=== PATIENT | female | born 1935 | race Caucasian/White ===

== ENCOUNTER 2019-06-16 11:41 | Inpatient (IN) | payer MEDICARE, MEDICAID ==
[~2019-06-16] VITALS: Ht 165.1 cm; Wt 72.6 kg
[2019-06-16] MEDS ORDERED: SODIUM CHLORIDE 0.9% 1,000 ML IV ONE ×2 (12:07)
[2019-06-16 12:27] LABS: BASOPHILS % 0.4 % (0.0-2.0); EOSINOPHILS % 1.6 % (0.0-5.0); HEMATOCRIT. 34.7 % (36.0-48.0); HEMOGLOBIN. 11.9 g/dL (12.0-16.0); LYMPHOCYTES % 33.3 % (20.0-50.0); MEAN CORPUSCULAR VOLUME 87.8 fL (81.0-99.0); MEAN PLATELET VOLUME 8.6 fl (7.4-10.4); MONOCYTES % 5.8 % (2.0-8.0); NEUTROPHILS % 58.9 % (40.0-76.0); PLATELET 192 x1000/uL (130-400); RED BLOOD CELL COUNT 3.95 mill/uL (4.2-5.4); RED CELL DISTRIBUTION WIDTH 12.3 % (11.6-14.6)
[2019-06-16 12:32] LABS: CHLORIDE 101 mEq/L (98-107)
[2019-06-16 12:49] LABS: D-DIMER 1.66 mg/L FEU (<0.50); PROTHROMBIN TIME 10.7 sec (9.6-11.0)
[2019-06-16] MEDS ORDERED: PIPERACILLIN/TAZ 3.375G PREMIX 50 ML IV ONE (13:00)
[2019-06-16] MEDS ORDERED: VANCOMYCIN 1 G PREMIX 200 ML IV ONE (13:00)
[2019-06-16] MEDS ORDERED: SODIUM CHLORIDE 0.9% 1000ML BAG (SEPSIS BOLUS) IV ONE (13:00)
[2019-06-16] MEDS ORDERED: GUAIFENESIN 200MG/10ML SUGAR FREE UDC PO PRN (14:45)
[2019-06-16] MEDS ORDERED: ONDANSETRON HCL 4MG/2ML INJ IV PRN (14:45)
[2019-06-16] MEDS ORDERED: PIPERACILLIN/TAZ 3.375G PREMIX 50 ML IV SCH (14:45)
[2019-06-16] MEDS ORDERED: IOHEXOL-350 100 ML BOTTLE ONE ×2 (15:00→20:08)
[2019-06-16 15:24] LABS: CLARITY URINE CLEAR (CLEAR); COLOR URINE YELLOW (YELLOW); KETONES URINE NEGATIVE (NEGATIVE); LEUKOCYTE ESTERASE URINE NEGATIVE (NEGATIVE); NITRITE URINE NEGATIVE (NEGATIVE); OCCULT BLOOD URINE NEGATIVE (NEGATIVE); PH URINE 5.5 (4.5-8.0); PROTEIN URINE NEGATIVE (NEGATIVE); SPECIFIC GRAVITY URINE 1.004 (1.005-1.030); UROBILINOGEN URINE 0.2 E.U./dL (0.2-1.0)
[2019-06-16] MEDS: SODIUM CHLORIDE 0.9% 1,000 ML IV SCH (17:46)
[2019-06-16] MEDS: BLOOD SUGAR DIAGNOSTIC STRIP TEST SCH (18:00)
[2019-06-16] MEDS: ENOXAPARIN 40MG/0.4ML SYR SUBCUT SCH (18:32)
[2019-06-16 21:00] VITALS: BP 156/59
[2019-06-16] MEDS ORDERED: DEXTROSE 50% WATER 50ML SYRINGE IV PRN (21:00)
[2019-06-16 21:36] VITALS: BP 156/59
[2019-06-16] MEDS: ATORVASTATIN CALCIUM 40MG TABLET PO SCH (22:48)
[2019-06-16] MEDS: PIPERACILLIN/TAZOBACTAM 3.375 G in DEXT 5% WATER 100 ML IV SCH (22:48)
[2019-06-16] MEDS: INSULIN GLARGINE UD 100 UNITS/ML SYR SUBCUT SCH (22:54)
[2019-06-17] VITALS: BP 155/56
[2019-06-17] MEDS: BLOOD SUGAR DIAGNOSTIC STRIP TEST SCH ×4 (00:58→17:16)
[2019-06-17 04:00] VITALS: BP 151/44
[2019-06-17] MEDS: INSULIN LISPRO (HIGH DOSE) 100 UNITS/ML SUBCUT SCH ×4 (06:00→17:15)
[2019-06-17] MEDS: PIPERACILLIN/TAZOBACTAM 3.375 G in DEXT 5% WATER 100 ML IV SCH ×2 (06:21→13:00)
[2019-06-17] MEDS: SODIUM CHLORIDE 0.9% 1,000 ML IV SCH (06:22)
[2019-06-17 06:38] LABS: BASOPHILS % 0.7 % (0.0-2.0); EOSINOPHILS % 3.8 % (0.0-5.0); HEMOGLOBIN. 11.9 g/dL (12.0-16.0); LYMPHOCYTES % 27.2 % (20.0-50.0); MEAN CORPUSCULAR HEMOGLOBIN 29.7 pg (28.0-32.0); MEAN CORPUSCULAR VOLUME 87.7 fL (81.0-99.0); MEAN PLATELET VOLUME 8.7 fl (7.4-10.4); MONOCYTES % 6.4 % (2.0-8.0); NEUTROPHILS % 61.9 % (40.0-76.0); PLATELET 198 x1000/uL (130-400); RED BLOOD CELL COUNT 3.99 mill/uL (4.2-5.4); RED CELL DISTRIBUTION WIDTH 12.6 % (11.6-14.6)
[2019-06-17 06:42] LABS: CHLORIDE 110 mEq/L (98-107)
[2019-06-17 08:00] VITALS: BP 167/65
[2019-06-17] MEDS ORDERED: ENOXAPARIN 40MG/0.4ML SYR SUBCUT SCH (09:00)
[2019-06-17] MEDS: ASPIRIN 325MG EC TABLET PO SCH (09:53)
[2019-06-17] MEDS: INSULIN GLARGINE UD 100 UNITS/ML SYR SUBCUT SCH ×2 (09:54→21:39)
[2019-06-17 12:00] VITALS: BP 182/60
[2019-06-17] MEDS: ACETAMINOPHEN 325MG TABLET PO PRN (13:00)
[2019-06-17] MEDS ORDERED: LACTULOSE 20G/30ML UDC PO SCH (15:00)
[2019-06-17] MEDS ORDERED: CLONIDINE 0.1MG TABLET PO PRN (15:00)
[2019-06-17 16:00] VITALS: BP 173/68
[2019-06-17] MEDS ORDERED: TRAMADOL 50MG TABLET PO PRN (16:00)
[2019-06-17] MEDS: AMLODIPINE 10MG TABLET PO SCH (17:15)
[2019-06-17] MEDS: ENOXAPARIN 40MG/0.4ML SYR SUBCUT SCH (17:16)
[2019-06-17 20:00] VITALS: BP 153/60
[2019-06-17] MEDS: METOPROLOL TARTRATE 25MG TABLET PO SCH (21:38)
[2019-06-17] MEDS: ATORVASTATIN CALCIUM 40MG TABLET PO SCH (21:38)
[2019-06-18] VITALS (7 sets, daily range): BP systolic 112–185; BP diastolic 41–71
[2019-06-18] MEDS: INSULIN LISPRO (HIGH DOSE) 100 UNITS/ML SUBCUT SCH ×4 (00:23→18:00)
[2019-06-18] MEDS: BLOOD SUGAR DIAGNOSTIC STRIP TEST SCH ×4 (00:24→18:01)
[2019-06-18 06:36] LABS: BASOPHILS % 0.6 % (0.0-2.0); HEMATOCRIT. 35.3 % (36.0-48.0); HEMOGLOBIN. 11.8 g/dL (12.0-16.0); LYMPHOCYTES % 39.6 % (20.0-50.0); MEAN CORPUSCULAR HEMOGLOBIN 29.3 pg (28.0-32.0); MEAN CORPUSCULAR VOLUME 87.5 fL (81.0-99.0); MEAN PLATELET VOLUME 8.9 fl (7.4-10.4); MONOCYTES % 7.9 % (2.0-8.0); NEUTROPHILS % 47.9 % (40.0-76.0); PLATELET 192 x1000/uL (130-400); RED BLOOD CELL COUNT 4.04 mill/uL (4.2-5.4); RED CELL DISTRIBUTION WIDTH 12.5 % (11.6-14.6)
[2019-06-18] MEDS ORDERED: LISINOPRIL 20MG TABLET PO SCH (09:00)
[2019-06-18] MEDS: AMLODIPINE 10MG TABLET PO SCH (09:26)
[2019-06-18] MEDS: ASPIRIN 325MG EC TABLET PO SCH (09:26)
[2019-06-18] MEDS: METOPROLOL TARTRATE 25MG TABLET PO SCH ×2 (09:26→21:01)
[2019-06-18] MEDS: INSULIN GLARGINE UD 100 UNITS/ML SYR SUBCUT SCH ×2 (09:27→21:08)
[2019-06-18] MEDS: ACETAMINOPHEN 325MG TABLET PO PRN (11:38)
[2019-06-18] MEDS ORDERED: LEVOTHYROXINE SODIUM 112MCG TABLET PO ONE (15:00)
[2019-06-18] MEDS ORDERED: HYDRALAZINE 20MG/ML VIAL IV PRN (15:15)
[2019-06-18] MEDS: ENOXAPARIN 40MG/0.4ML SYR SUBCUT SCH (18:00)
[2019-06-18] MEDS ORDERED: HYDRALAZINE 20MG/ML VIAL IV SCH (18:00)
[2019-06-18] MEDS ORDERED: REGADENOSON 0.4 MG/5 ML IV NR (19:15)
[2019-06-18] MEDS: ATORVASTATIN CALCIUM 40MG TABLET PO SCH (21:00)
[2019-06-18] MEDS: LISINOPRIL 20MG TABLET PO SCH (21:01)
[2019-06-19] VITALS: BP 145/48
[2019-06-19] MEDS: INSULIN LISPRO (HIGH DOSE) 100 UNITS/ML SUBCUT SCH ×3 (01:14→12:00)
[2019-06-19 04:00] VITALS: BP 120/48
[2019-06-19] MEDS: BLOOD SUGAR DIAGNOSTIC STRIP TEST SCH ×3 (05:50→12:29)
[2019-06-19] MEDS ORDERED: LEVOTHYROXINE SODIUM 112MCG TABLET PO SCH (07:10)
[2019-06-19 08:00] VITALS: BP 169/58
[2019-06-19] MEDS ORDERED: NIFEDIPINE XL 30MG TAB PO SCH (09:00)
[2019-06-19] MEDS: ASPIRIN 325MG EC TABLET PO SCH (09:00)
[2019-06-19] MEDS: METOPROLOL TARTRATE 25MG TABLET PO SCH (09:00)
[2019-06-19] MEDS: LISINOPRIL 20MG TABLET PO SCH (09:00)
[2019-06-19] MEDS: INSULIN GLARGINE UD 100 UNITS/ML SYR SUBCUT SCH (10:00)
[2019-06-19] MEDS ORDERED: REGADENOSON 0.4 MG/5 ML IV ONE (10:58)
[2019-06-19 12:00] VITALS: BP 179/68
[2019-06-19 15:24] VITALS: BP 133/81
== END 2019-06-19 17:00 | disposition home or self-care (01) | DRG 206 ==
LOC: ER 11:41 → EDBEDREQ 12:10 → 8WST 13:48 → EDBEDREQTM 14:04 → EDBEDREQSVC 14:04 → EDBEDREQ 14:04 → ENRESERV 18:55
PROVIDERS: ADMIT Internal Medicine; ATTEND Internal Medicine
DX: M94.0 Chondrocostal junction syndrome [Tietze] (principal); R00.1 Bradycardia, unspecified; Z79.4 Long term (current) use of insulin; M19.90 Unspecified osteoarthritis, unspecified site; E78.00 Pure hypercholesterolemia, unspecified; I25.10 Atherosclerotic heart disease of native coronary artery without angina pectoris; E03.9 Hypothyroidism, unspecified; M79.604 Pain in right leg; E11.9 Type 2 diabetes mellitus without complications; R91.8 Other nonspecific abnormal finding of lung field; E78.5 Hyperlipidemia, unspecified; I10 Essential (primary) hypertension; J44.9 Chronic obstructive pulmonary disease, unspecified; K56.41 Fecal impaction; K57.90 Diverticulosis of intestine, part unspecified, without perforation or abscess without bleeding; Z79.82 Long term (current) use of aspirin; Z79.899 Other long term (current) drug therapy; Z80.0 Family history of malignant neoplasm of digestive organs; Z95.1 Presence of aortocoronary bypass graft; Z79.84 Long term (current) use of oral hypoglycemic drugs; I95.9 Hypotension, unspecified
CPT/HCPCS: 36415; 71045; 71275; 74177; 78452; 80048; 81003; 82010; 82962; 83605; 83880; 84484; 85379; 86850; 86900; 93005; 93017; 93306; 93923; 93970; 96361; 96365; 96372; 97162; 99291; A9500; J1650; J1815; J2543; J2785; J3370; J7030; J7060; Q9967